=== PATIENT | male | born 1950 | race Caucasian/White ===

== ENCOUNTER 2024-09-09 04:34 | Emergency (ER) | payer OTHER, SELFPAY ==
[2024-09-09 04:40] VITALS: BP 127/75
[2024-09-09 04:41] VITALS: BP 127/75
[2024-09-09 04:50] VITALS: BMI 25.9
[2024-09-09 05:00] VITALS: BP 104/74
[2024-09-09 05:29] LABS: % Basophils 0.4 % (0-2); % Eosinophils 0.1 % (0-6); % Immature Granulocytes 0.6 % (0-0.5); % Lymphocytes 6.3 % (20.5-51.1); % Monocytes 8.4 % (1.7-9.3); % Neutrophils 84.2 % (42.2-75.2); Absolute Lymphocytes 0.4 10^3/uL (1.2-3.4); Absolute Monocytes 0.6 10^3/uL (0.1-0.6); Absolute Neutrophils 5.7 10^3/uL (1.4-6.5); Hematocrit 41.9 % (39.0-52.0); Hemoglobin 14.2 g/dL (13.0-18.0); Mean Corp Hgb Conc. 33.9 g/dL (33.0-37.0); Mean Corpuscular Hgb 32.7 pg (27.0-31.0); Mean Corpuscular Volume 96.5 fL (80.0-94.0); Mean Platelet Volume 12.3 fL (7.4-10.4); Nucleated Red Blood Cells % 0 % (-); Platelet Count 145 10^3/uL (130-400); Red Blood Cell Count 4.34 10^6/uL (4.70-6.10); Red Cell Dist. Width 14.2 % (11.5-14.5); White Blood Cell Count 6.8 10^3/uL (4.8-10.8)
[2024-09-09 05:40] LABS: INR 1.39; PT 17.3 Sec (11.4-14.6)
[2024-09-09 05:41] LABS: COVID-19 Antigen Negative (Negative)
[2024-09-09 06:40] VITALS: BP 126/76
--- NOTE | 2024-09-09 06:43 | ED.GENMED ---
History of Present Illness
General
Chief Complaint: Fall
Source: patient and ambulance crew
Exam Limitations: none
Time Seen by Provider: 09/09/24 05:04
Nursing documentation reviewed up to this point in time: agreed with
History of Present Illness
History of Present Illness:
74-year-old male from local nursing apparently was found facedown by staff put back in bed patient had no complaints although possibly struck his head takes warfarin, received a call from EMS, question of taken to the trauma center versus here
because his GCS was 15, no signs of a stroke when I evaluated the patient patient was cooperative no acute distress denies chest pain denies shortness of breath denies abdominal pain denies dark or bloody stools
Past History
Past History
ED Past Medical History: Arrthythmia
Social History
Tobacco: Non-smoker
Alcohol: None
Drug: None
Living: long-term
Employment: Retired
Review of Systems
Review of Systems
All Other Systems: Not applicable
Constitutional: Denies fever or fatigue
EENT: Reports no symptoms
Respiratory: Reports no symptoms
Cardiac: Reports syncope
ABD/GI: Reports no symptoms; Denies bloody stools or black stools
: Reports no symptoms
Skin: Reports no symptoms
Neurological: Reports weakness (Chronic)
Psychiatric: Reports no symptoms
Phy Exam
Physical Exam
Physical Exam:
Physical Exam
General: Chronically ill male no acute distress
Neck: No tongue bite no posterior neck pain
Heart: Irregular
Lungs: no acute respiratory distress. clear bilaterally
Abdomen: Nontender
Neuro: alert and oriented. no focal neurological deficits
Skin: no rash
Psychiatric: cooperative
Extremities: No signs of extremity
Course
Orders/Labs/Results
Orders:
Orders
09/09/24 04:53
COVID-19 Antigen Urgent
Source: Nasal Swab
Complete Blood Count/With Diff Urgent
PT/INR [Prothrombin Time] Urgent
Influenza A+B Rapid Molecular Urgent
KATI Source: Nasal Swab
Specimen Description:
09/09/24 05:04
CT Head W/o Iv Contrast Urgent
Comment:
Reason For Exam: fall
09/09/24 05:05
CT Cervical Spine W/o Iv Contr Urgent
Comment:
Reason For Exam: fall
09/09/24 05:46
Comprehensive Metabolic Panel Urgent
Abnormal Lab Results
09/09/24
04:53
RBC 4.34 L 10^6/uL
(4.70-6.10)
MCV 96.5 H fL
(80.0-94.0)
MCH 32.7 H pg
(27.0-31.0)
MPV 12.3 H fL
(7.4-10.4)
Absolute Lymphs (auto) 0.4 L 10^3/uL
(1.2-3.4)
Immature Gran % 0.6 H %
(0-0.5)
Neutrophils % 84.2 H %
(42.2-75.2)
Lymphocytes % 6.3 L %
(20.5-51.1)
PT 17.3 H Sec
(11.4-14.6)
09/09/24 04:53
Vital Signs
Initial and Last Documented VS:
Initial Vital Signs
Temp Pulse Resp BP Pulse Ox
98.5 F 80 18 127/75 95
09/09/24 04:40 09/09/24 04:40 09/09/24 04:40 09/09/24 04:40 09/09/24 04:40
Last Documented Vital Signs
Temp Pulse Resp BP Pulse Ox
98.5 F 75 15 126/76 98
09/09/24 04:40 09/09/24 06:40 09/09/24 06:40 09/09/24 06:40 09/09/24 06:40
MDM/Problems Addressed
Differential Diagnosis Includes:
Deconditioning electrolyte abnormality syncope arrhythmia
MDM/Problems Addressed:
Syncope head trauma
Chronic conditions affecting care: Arrhythmia
Acute Exacerbation and/or Progression of Chronic Illness: Arrhythmia
*EKG
Interpreted by ED Provider?: Yes
Interpretation: normal
Comparison EKG: no comparison EKG present
Heart Rate: 78
Rate: normal
Rhythm: sinus
Ischemia: non-specific ST changes
*Tin Assorter Interpretation
Rate: normal and Tin Assorter- N/A
Interpretation: normal
Heart Rate: 78
Rhythm: sinus
*Critical Care Note
Total Time (30-74mins, 75-104mins- exclusive of procedures): Not Applicable
Update Note
Update Note:
Update CTs noted patient well-appearing electrolytes are pending
ED Attending Note
-
Portions of this chart may have been created with voice recognition software.� Occasional wrong word or��sound alike� substitutions may have occurred due to the inherent limitations of voice recognition software.
Discharge Plan
Departure
Patient Disposition: Home (Routine Discharge)
Date of Disposition: 09/09/24
Time of Disposition: 07:10
Patient with high blood pressure during this ER visit?: No
Discharge Problem:
Fall
Instructions: Preventing falls in adults
Prescriptions:
No Action
acetaminophen 325 mg Tablet
650 mg PO Q6H PRN (Reason: mild pain)
warfarin 5 mg Tablet
5 mg PO HS
Referrals:
Dixon Parry I., DO [Family Provider] -
Interventions
Interventions:
*Risk Screen - Suicide Last Done: 09/09/24 04:40
*General Assessment Last Done: 09/09/24 04:40
*Neglect/Abuse Screening Last Done: 09/09/24 04:40
*ED COVID-19 Vaccine History Last Done: 09/09/24 04:40
Discharge Date and Time
Print Language: DANISH
[2024-09-09 07:00] VITALS: BP 121/74
[2024-09-09 07:52] LABS: ALT (SGPT) 18 U/L (0-50); AST (SGOT) 49 U/L (17-59); Albumin 3.6 g/dl (3.5-5.0); Alkaline Phosphatase 78 U/L (38-126); Blood Urea Nitrogen 21 mg/dl (9-20); Calcium 8.9 mg/dl (8.4-10.2); Carbon Dioxide 24 mmol/L (22-30); Chloride 106 mmol/L (98-107); Estimated Creatinine Clearance 59 ml/min; Glucose 116 mg/dl (70-99); Sodium 138 mmol/L (135-145); Total Bilirubin 2.4 mg/dl (0.2-1.3); Total Protein 6.5 g/dl (6.3-8.2); eGFR > 60.00
[2024-09-09 08:11] LABS: Potassium 3.9 mmol/L (3.5-5.1)
== END 2024-09-09 11:10 | disposition home or self-care (01) ==
LOC: EMR 04:34
PROVIDERS: EMERGENCY PHYSICIAN Emergency Medicine; FAMILY PHYSICIAN Internal Medicine
DX: R55 Syncope and collapse (principal); R53.1 Weakness; S09.90XA Unspecified injury of head, initial encounter; S00.81XA Abrasion of other part of head, initial encounter; W19.XXXA Unspecified fall, initial encounter; Z11.52 Encounter for screening for COVID-19; F03.90 Unspecified dementia, unspecified severity, without behavioral disturbance, psychotic disturbance, mood disturbance, and anxiety; I69.354 Hemiplegia and hemiparesis following cerebral infarction affecting left non-dominant side; I48.91 Unspecified atrial fibrillation; Z95.2 Presence of prosthetic heart valve; Z85.72 Personal history of non-Hodgkin lymphomas; Z85.828 Personal history of other malignant neoplasm of skin
CPT/HCPCS: 99284; 70450; 72125; 80053; 85025; 85610; 87502; 87811; 93005

== ENCOUNTER 2024-12-20 01:15 | Emergency (ER) | payer OTHER, SELFPAY ==
[2024-12-20 01:22] VITALS: BP 112/84
[2024-12-20 01:50] VITALS: BMI 24.2
[2024-12-20 02:45] LABS: % Basophils 0.8 % (0-2); % Eosinophils 2.6 % (0-6); % Immature Granulocytes 0.3 % (0-0.5); % Lymphocytes 40.7 % (20.5-51.1); % Monocytes 10.5 % (1.7-9.3); % Neutrophils 45.1 % (42.2-75.2); Absolute Eosinophils 0.1 10^3/uL (0-0.7); Absolute Lymphocytes 1.6 10^3/uL (1.2-3.4); Absolute Monocytes 0.4 10^3/uL (0.1-0.6); Absolute Neutrophils 1.7 10^3/uL (1.4-6.5); Hematocrit 37.3 % (39.0-52.0); Hemoglobin 12.4 g/dL (13.0-18.0); Mean Corp Hgb Conc. 33.2 g/dL (33.0-37.0); Mean Corpuscular Hgb 32.6 pg (27.0-31.0); Mean Corpuscular Volume 98.2 fL (80.0-94.0); Mean Platelet Volume 11.7 fL (7.4-10.4); Nucleated Red Blood Cells % 0 % (-); Platelet Count 159 10^3/uL (130-400); Red Cell Dist. Width 15.2 % (11.5-14.5); White Blood Cell Count 3.8 10^3/uL (4.8-10.8)
[2024-12-20 02:57] LABS: INR 1.74; PT 20.5 Sec (11.4-14.6)
[2024-12-20 02:59] LABS: APTT 39.9 Sec (23.4-35.0)
[2024-12-20 03:35] LABS: ALT (SGPT) 18 U/L (0-50); AST (SGOT) 34 U/L (17-59); Albumin 3.3 g/dl (3.5-5.0); Alkaline Phosphatase 77 U/L (38-126); Blood Urea Nitrogen 19 mg/dl (9-20); Carbon Dioxide 30 mmol/L (22-30); Chloride 106 mmol/L (98-107); Estimated Creatinine Clearance 72 ml/min; Glucose 88 mg/dl (70-99); Potassium 4.3 mmol/L (3.5-5.1); Sodium 141 mmol/L (135-145); Total Bilirubin 1.3 mg/dl (0.2-1.3); Total Protein 6.2 g/dl (6.3-8.2); eGFR > 60.00
--- NOTE | 2024-12-20 06:22 | ED.GENMED ---
History of Present Illness
General
Chief Complaint: Abnormal Lab Value
Source: patient and long-term
Exam Limitations: none
Time Seen by Provider: 12/20/24 04:37
Nursing documentation reviewed up to this point in time: agreed with
History of Present Illness
History of Present Illness:
This is a 74-year-old gentleman with history of PAF chronically maintained on Coumadin. 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 History of CVA with left hemiparesis. He is a chronic resident of [facility]
home. He reports suffering a mechanical fall yesterday where he struck his elbow. Admits to mild pain to his elbow. He adamantly denies striking his head, no loss of consciousness, denies headache, denies neck nor back pain.
He is sent to the ED by long-term with concern for elevated PT/INR, PTT. There is been no report of bleeding. No bruising.
Past History
Past History
ED Past Medical History: Arrthythmia, Cancer, CVA and Valvular disease
ED Past Surgical History: Cardiac and Orthopedic (Left forearm fracture repair)
Social History
Tobacco: Non-smoker
Alcohol: None
Drug: None
Living: long-term
Employment: Retired
Family History
Family History: Other (Noncontributory)
Phy Exam
Physical Exam
Physical Exam:
GENERAL: 74-year-old gentleman appears his stated age, bright and alert, pleasant, easily communicative and in no acute distress.
EYE: The head is normocephalic, atraumatic. Pupils equal and reactive. anicteric
NECK: Supple, nontender, full range of motion without difficulty nor pain. No meningismus, no significant adenopathy.
ENT: posterior pharynx is clear, oral mucosa is moist. TM clear b/l, nares patent.
CARDIAC: Regular rate and rhythm. no murmur.
LUNGS: Clear breath sounds bilaterally, no acute respiratory distress, no wheezes/rales/rhonchi
ABDOMEN: Soft, nondistended, without focal tenderness, no r/g, no cvat. normoactive BS.
NEUROLOGICAL: Alert and oriented x3, chronic left hemiparesis.
SKIN: Warm and dry, normal color, skin intact. No rash. No petechiae nor ecchymosis.
MUSCULOSKELETAL: No C/C/E. peripheral pulses are full and equal b/l. There is mild flexion deformity of left wrist and hand. Mild to moderate dysmetria of left upper extremity. Mild tenderness about the left elbow with full range of motion
without difficulty. No soft tissue swelling or joint effusion, no ecchymosis, no crepitus. There is no tenderness to the upper arm nor shoulder, no tenderness to the forearm nor wrist nor hand. There is evidence of old, well-healed scar along the
left forearm.
PSYCH: Normal and appropriate interaction.
Course
Orders/Labs/Results
Orders:
Orders
12/20/24 02:37
Complete Blood Count/With Diff Urgent
Comprehensive Metabolic Panel Urgent
PTT Urgent
Prothrombin Time Urgent
12/20/24 05:28
Elbow, 3 view, Left [CR Elbow - Left Min 3 Views ] Urgent
Comment:
Reason For Exam: fall, left elbow pain
Abnormal Lab Results
12/20/24
02:37
WBC 3.8 L 10^3/uL
(4.8-10.8)
RBC 3.80 L 10^6/uL
(4.70-6.10)
Hgb 12.4 L g/dL
(13.0-18.0)
Hct 37.3 L %
(39.0-52.0)
MCV 98.2 H fL
(80.0-94.0)
MCH 32.6 H pg
(27.0-31.0)
RDW 15.2 H %
(11.5-14.5)
MPV 11.7 H fL
(7.4-10.4)
Monocytes % 10.5 H %
(1.7-9.3)
PT 20.5 H Sec
(11.4-14.6)
APTT 39.9 H Sec
(23.4-35.0)
Total Protein 6.2 L g/dl
(6.3-8.2)
Albumin 3.3 L g/dl
(3.5-5.0)
12/20/24 02:37
12/20/24 02:37
Vital Signs
Initial and Last Documented VS:
Initial Vital Signs
Temp Pulse Resp BP Pulse Ox
98 F 62 20 112/84 93
12/20/24 01:22 12/20/24 01:22 12/20/24 01:22 12/20/24 01:22 12/20/24 01:22
Last Documented Vital Signs
Temp Pulse Resp BP Pulse Ox
98 F 62 20 112/84 93
12/20/24 01:22 12/20/24 01:22 12/20/24 01:22 12/20/24 01:22 12/20/24 01:22
MDM/Problems Addressed
Differential Diagnosis Includes:
Patient presents from long-term with concern for elevated coagulation studies. No reported bleeding nor ecchymosis.
Patient does note fall yesterday striking his left elbow but adamantly denies head injury. He denies abdominal or back pain.
Labs revealed subtherapeutic INR at 1.74 with minimally elevated PTT of 39.9. This is consistent with slightly subtherapeutic Coumadin level.
Mild but stable anemia.
He remains hemodynamically stable.
Will check x-ray left elbow assess for potential occult fracture. No indication for CT of the head.
Chronic conditions affecting care: Arrhythmia and Neurological disorder
*Radiology
Radiology exam reviewed: preliminary read by ED provider (Left elbow x-ray shows no evidence of fracture. There is evidence of prior internal fixation of radius.)
*Pulse Oximetry
Patient hypoxic: no
*Critical Care Note
Total Time (30-74mins, 75-104mins- exclusive of procedures): Not Applicable
ED Attending Note
-
Portions of this chart may have been created with voice recognition software.� Occasional wrong word or��sound alike� substitutions may have occurred due to the inherent limitations of voice recognition software.
Discharge Plan
Departure
Patient Disposition: Half-Way/SNF
Date of Disposition: 12/20/24
Time of Disposition: 06:23
Patient with high blood pressure during this ER visit?: No
Condition: Good
Discharge Problem:
Contusion of elbow, left, Subtherapeutic international normalized ratio (INR), Fall at long-term
Instructions: Contusion, Fall Prevention for Older Adults
Prescriptions:
No Action
acetaminophen 325 mg Tablet
650 mg PO Q6H PRN (Reason: mild pain)
warfarin 5 mg Tablet
5 mg PO HS
Referrals:
UNKNOWN - PT DOES,NOT KNOW [Family Provider] - Call in 1-3 days for appt
Interventions
Interventions:
*Risk Screen - Suicide Last Done: 12/20/24 01:22
*General Assessment Last Done: 12/20/24 01:22
*Neglect/Abuse Screening Last Done: 12/20/24 01:22
*ED- Fall Risk Assessment Last Done: 12/20/24 01:22
*ED COVID-19 Vaccine History Last Done: 12/20/24 01:51
Discharge Date and Time
Print Language: SAMI
[2024-12-20 06:33] VITALS: BP 128/72
== END 2024-12-20 06:35 ==
LOC: EMR 01:15
PROVIDERS: EMERGENCY PHYSICIAN Emergency Medicine
DX: S50.02XA Contusion of left elbow, initial encounter (principal); W19.XXXA Unspecified fall, initial encounter; Y92.129 Unspecified place in nursing home as the place of occurrence of the external cause; R79.1 Abnormal coagulation profile; I48.0 Paroxysmal atrial fibrillation; I69.354 Hemiplegia and hemiparesis following cerebral infarction affecting left non-dominant side; Z79.01 Long term (current) use of anticoagulants; Z95.2 Presence of prosthetic heart valve
CPT/HCPCS: 99284; 73080; 80053; 85025; 85610; 85730